=== PATIENT | female | born 1985 | race Caucasian/White ===

== ENCOUNTER 2020-05-22 14:16 | Outpatient (CLI) | payer OTHER, SELFPAY ==
--- NOTE | ~2020-05-22 | MM_ITS ---
EXAMINATION: MM screening rogerio BI w maureen HISTORY: Screening mammogram, family history of breast cancer in her mother at age 47. TECHNIQUE: Craniocaudal and mediolateral oblique 3-D tomosynthesis images were obtained and synthetic 2-D images were generated. CAD analysis was submitted and interpreted. COMPARISON: None, baseline BREAST PARENCHYMAL COMPOSITION: The breasts are extremely dense, which lowers the sensitivity of mamm ography. FINDINGS: There is no evidence of suspicious mass, calcification, or architectural distortion to sugg est malignancy in either breast. IMPRESSION: 1. No mammographic evidence of malignancy. 2. Recommend routine screening mammography in one year. BI-RADS Category 1: Negative Reviewed, dictated and finalized at location A.
== END 2020-05-22 14:17 | disposition home or self-care (01) ==
PROVIDERS: PCP Family Medicine; Visit Provider Family Medicine
DX: Z12.31 Encounter for screening mammogram for malignant neoplasm of breast (principal)
CPT/HCPCS: 77063; 77067

== ENCOUNTER → 2020-10-24 12:54 | Outpatient (CLI) | payer OTHER, SELFPAY ==
--- NOTE | ~2020-10-24 | XR_ITS ---
XR foot LT min 3V DATE: 10/24/2020 13:10 INDICATION: Left foot pain TECHNIQUE: 4 views COMPARISON: None FINDINGS: Posterior calcaneal enthesopathy. No fracture, dislocation, periosteal reaction or bone destruction is detected. Os tibiale externum, n ormal variant. IMPRESSION: Prominent posterior calcaneal enthesopathy Reviewed, dictated and finalized at location A. RUCTION DEAN
== END ==
PROVIDERS: PCP Physician Assistant Medical; Visit Provider Physician Assistant Medical
DX: M79.672 Pain in left foot (principal); M77.32 Calcaneal spur, left foot
CPT/HCPCS: 73630

== ENCOUNTER 2021-06-01 11:16 | Outpatient (CLI) | payer BC, SELFPAY ==
--- NOTE | ~2021-06-01 | MM_ITS ---
EXAMINATION: MM screening rogerio BI w maureen HISTORY: Screening mammogram TECHNIQUE: Craniocaudal and mediolateral oblique 3-D tomosynthesis images were obtained and synthetic 2-D images were generated. CAD analysis was submitted and interpreted. COMPARISON: 05/22/2020 bilateral digital screening mammogram BREAST PARENCHYMAL COMPOSITION: The breasts are extremely dense, which lowers the sensitivity of mamm ography. FINDINGS: There is no evidence of suspicious mass, calcification, or architectural distortion to sugg est malignancy in either breast. There has been no suspicious interval change. IMPRESSION: 1. No mammographic evidence of malignancy. 2. Recommend routine screening mammography in one year. BI-RADS Category 1: Negative Reviewed, dictated and finalized at location A.
== END 2021-06-01 11:17 | disposition home or self-care (01) ==
LOC: ANHIMG 11:17
PROVIDERS: PCP Family Medicine; Visit Provider Physician Assistant Medical
DX: Z12.31 Encounter for screening mammogram for malignant neoplasm of breast (principal); Z80.3 Family history of malignant neoplasm of breast
CPT/HCPCS: 77063; 77067

== ENCOUNTER 2022-07-23 08:18 | Outpatient (CLI) | payer OTHER, SELFPAY ==
--- NOTE | ~2022-07-23 | MM_ITS ---
EXAMINATION: MM screening rogerio BI w maureen HISTORY: Screening mammogram, family history of breast cancer in her mother. TECHNIQUE: Craniocaudal and mediolateral oblique 3-D tomosynthesis images were obtained and synthetic 2-D images were generated. CAD analysis was submitted and interpreted. COMPARISON: 06/01/2021, 05/22/2020 BREAST PARENCHYMAL COMPOSITION: The breasts are extremely dense, which lowers the sensitivity of mamm ography. FINDINGS: No suspicious mass, calcification, or architectural distortion are identified in either víctor ast to suggest malignancy. There has been no suspicious interval change. IMPRESSION: 1. No mammographic evidence of malignancy. 2. Recommend routine screening mammography in one year. BI-RADS Category 1: Negative Reviewed, dictated and finalized at location A.
== END 2022-07-23 08:19 | disposition home or self-care (01) ==
LOC: ANHIMG 08:21
PROVIDERS: PCP Family Medicine; Visit Provider Family Medicine
DX: Z12.31 Encounter for screening mammogram for malignant neoplasm of breast (principal)
CPT/HCPCS: 77063; 77067

== ENCOUNTER 2023-11-12 09:45 | Outpatient (CLI) | payer OTHER, SELFPAY ==
--- NOTE | ~2023-11-12 | MM_ITS ---
EXAMINATION: MM screening rogerio BI w maureen HISTORY: Screening mammogram, family history of breast cancer in her mother. TECHNIQUE: Craniocaudal and mediolateral oblique 3-D tomosynthesis images were obtained and synthetic 2-D images were generated. CAD analysis was submitted and interpreted. COMPARISON: 07/23/2022, 06/01/2021, 05/02/2020 BREAST PARENCHYMAL COMPOSITION: The breasts are heterogeneously dense, which may obscure small masses . FINDINGS: No suspicious mass, calcification, or architectural distortion are identified in either víctor ast to suggest malignancy. There has been no suspicious interval change. IMPRESSION: 1. No mammographic evidence of malignancy. 2. Recommend routine screening mammography in one year. BI-RADS Category 1: Negative Reviewed, dictated and finalized at location A. CE RUNNER
== END 2023-11-12 09:46 | disposition home or self-care (01) ==
PROVIDERS: PCP Family Medicine; Visit Provider Family Medicine
DX: Z12.31 Encounter for screening mammogram for malignant neoplasm of breast (principal)
CPT/HCPCS: 77063; 77067

== ENCOUNTER 2024-08-12 04:38 | Day surgery (SDC) | payer OTHER, SELFPAY ==
[2024-08-05 13:54] VITALS: BMI 27.9
--- NOTE | 2024-08-05 13:59 | PC.NURSE ---
Addendum entered by Luiz Olguin RN 08/05/24 14:05: Patient told OK to drive home. Original Note: Report to the Outpatient Waiting Room, entrance under the green pavilion located off [address], at time _1100_ on date _[id number]_. Planned Procedure Time: _1200_.? Time changes happen often and if your time is changed the preop area will call you the afternoon before. - You and your visitor will be asked to self-screen and do not enter if you have any COVID symptoms. Please call surgeon if you need to reschedule. - A mask is optional within the hospital at this time. Ok for light breakfast Take only the following medications with a SIP of water on the morning of surgery: __None____ DO NOT STOP ANY OF YOUR OTHER PRESCRIPTION MEDICATIONS PRIOR TO SURGERY EXCEPT THE FOLLOWING Medications to discontinue per physician ___None____ Please no make-up, nail occitan, hairspray, perfume, deodorant, or body powder the day of surgery.? No jewelry (including any body piercings) or valuables the day of surgery, leave them at home.? Please take a shower or bath the night before, or the morning of, surgery with an antibacterial soap.? Wear comfortable, loose fitting clothing.? - Jewelry must be removed prior to entering the operating room.? Rings and piercings that are not removed may be cut off. - The hospital will not accept responsibility for valuables.? - Please leave all valuables, including medications, at home the day of surgery. If you are going home after surgery, a licensed star route mail driver must drive you home.? - NO public transportation without another adult if you receive anesthesia. - We recommend that an adult stay with you for 24 hours following discharge. - We also recommend that you do not drive, make important decision, drink alcoholic beverages, or take any drugs that were not prescribed by your health care provider for at least 24 hours after your discharge time. Follow any additional instructions given to you from your surgeon. Telephone instructions given to __Gwen__and asked if any additional questions and then verbalized understanding. Patient advised to call surgeon office or pre surgery nurse liaison [phone] if any additional questions.
--- NOTE | 2024-08-12 11:08 | WPDHPUPDATE1 ---
History and Physical Update Update Date/Time: 08/12/24 11:08 History and Physical has been reviewed, including an updated exam of the patient. There are NO changes in the patient's condition. Risks, benefits, and alternatives have been discussed and questions answered. Patient agrees to proceed with procedure.
--- NOTE | 2024-08-12 11:08 | PM.IMHP ---
H&P: HPI History of Present Illness Date/Time: 08/12/24 11:08 Chief Complaint: scalp cyst Narrative: 39 yo woman presents for excision of 3cm scalp cyst. She reports no changes since last seen in office. Review of Systems Review of Systems: All systems reviewed & are unremarkable except as noted in HPI and below Constitutional: Constitutional: Denies chills, Denies fever(s), Denies headache(s) and Denies weight loss Eyes: Eyes: Denies change in vision ENT: Denies dizziness, Denies headache(s), Denies neck mass and Denies throat swelling Cardiovascular: Cardiovascular: Denies chest pain, Denies lightheadedness and Denies dyspnea Respiratory: Respiratory: Denies cough, Denies dyspnea and Denies wheezing Gastrointestinal: Gastrointestinal: Denies abdominal pain, Denies change in bowel habits, Denies nausea and Denies vomiting Genitourinary: Genitourinary: Denies hematuria and Denies dysuria Musculoskeletal: Musculoskeletal: Reports as per HPI Integumentary/Breasts: Skin/Breast: Reports as per HPI Neurologic: Denies dizziness and Denies headache(s) Allergic/Immunologic: Allergic/Immunologic: Denies throat swelling and Denies wheezing PMF Past Medical History Medical History Family history of breast cancer in mother Vaginal delivery Family History Family History Grandparent Diabetes mellitus Hypertension Family history of elevated blood lipids Family history of cardiovascular disease Father Malignant neoplasm of prostate Acute myocardial infarction Mother Family history of malignant neoplasm of uterus Family history of malignant neoplasm of breast in first degree relative Social History Social History Smoking status: Never smoker Second hand tobacco smoke exposure: No Alcohol intake: current Alcohol use details: Rarely Substance use: never Substance use type: does not use Lack of Transportation: No Lack of Food: Never True Current Housing: I Have Housing Concerned About Future Housing: No Difficulty Paying Gas/Electric Bills: No Difficulty Paying for Meds: No Currently Unemployed: No Education: Bachelor's Degree Difficulty w/ Childcare or Family Care: No Living arrangements: with family Occupation/Education: other Gender identity (if verbalized by the patient): Female Spiritual care concerns: No Agree to blood products: Yes Meds Home Medications and Allergies Home Medications Medication Instructions Recorded Confirmed Type No Home Medications 02/11/24 08/05/24 History Allergies Allergy/AdvReac Type Severity Reaction Status Date / Time Penicillins Allergy Unknown throat Verified 08/05/24 13:53 swelling Exam Const: General: no acute distress and alert Orientation/consciousness: patient oriented x3 HENMT: Head: normocephalic and atraumatic Ears: hearing grossly normal bilaterally Face/Nose/Sinus: Normal nares present Mouth: Yes Normal oral and palatal mucosa present Eyes: Periorbital: periorbital findings normal Sclera: sclerae normal EOM: EOMs intact bilaterally Neck: Neck: normal visual inspection, no lymphadenopathy and trachea midline Chest: Chest palpation & inspection: normal inspection of the chest Resp: Effort & Inspection: normal respiratory effort Auscultation: clear to auscultation bilaterally Cardio: Jugular venous distension: no JVD Rate: regular rate Rhythm: regular rhythm Heart sounds: S1 normal heart sound present and S2 normal heart sound present Peripheral pulses: Peripheral pulses 2+ throughout GI: Inspection: normal to inspection GI Palp: Yes Soft to palpation, No Tenderness to palpation present (GI), No Guarding due to palpation present (GI) and No Rebound tenderness present Percussion: Yes normal to percussion Auscultation: normal bowel sounds : General: Yes no CVA tenderness Back/Spine/Pelvis: Back: no CVA tenderness Skin: Other: 3cm scalp cyst Neuro: General: patient oriented x3, no focal motor deficits and CN's II-XI intact bilaterally Cognition (Neuro): normal cognition Speech: normal speech Motor exam (neuro): 5/5 motor strength present throughout Extrem: General: capillary refill normal and no clubbing, cyanosis or edema Assessment and Plan Assessment and plan (1) Scalp cyst: Code(s): L72.9 - Follicular cyst of the skin and subcutaneous tissue, unspecified Status: Acute Assessment and Plan: I have recommended excision of 3 cm scalp cyst. I have discussed the procedure, risks, benefits, and alternatives with the patient. All questions answered. No changes since last seen in office.
[2024-08-12 11:10] VITALS: BP 109/70; PULSE 78; RESP 18; TEMP 37.3; O2SAT 100
[2024-08-12 11:53] VITALS: BP 95/60; PULSE 74; RESP 12; O2SAT 98
[2024-08-12 12:02] VITALS: BP 96/63; PULSE 73; RESP 14; O2SAT 98
[2024-08-12 12:11] VITALS: BP 97/59; PULSE 80; RESP 14; O2SAT 98
[2024-08-12] MEDS: LIDO 1%/EPINEPHRINE 1:100,000 20 ML VIAL 50 ML INFILTRATE (12:11)
[2024-08-12 12:21] VITALS: BP 97/59; PULSE 82; RESP 16; O2SAT 98
--- NOTE | 2024-08-12 12:30 | W.PM.PROC2 ---
Procedure Note - Detailed Date of Procedure 08/12/24 Pre-op Diagnosis Scalp Cyst (3cm) Post-op Diagnosis Other (Scalp mass) Procedure Performed Excision of 3 cm scalp mass Surgeon Agustin Pop, DO Anesthesia Local (1% lidocaine with epinephrine) Indications This is a 39-year-old woman who presented with a scalp mass that was causing some discomfort. It had become larger over time. She denies any prior history of drainage. She was found to have a 3 cm scalp mass that appeared consistent with a cyst. Discussions were made with the patient about treatment options and decision was made to proceed with excision of the 3 cm scalp cyst. Findings The patient had a scalp mass that initially was thought to be a cyst. As I got down to this area this actually appeared to be a scalp lipoma. The subcutaneous mass was completely excised and sent to the lab for pathology. No other abnormalities were identified. Description of Procedure Procedure as well as risks, benefits, and alternatives were discussed with the patient. Written consent was obtained and placed in chart prior to procedure. Patient was brought back to surgical suite. She was placed in left lateral decubitus position on the operating table. Time-out was done to confirm patient and procedure. Her scalp area was prepped and draped in sterile fashion using Betadine prep. 1% lidocaine with epinephrine was infiltrated locally around the mass. A 3 cm incision was made directly over the mass using a 15 blade scalpel. Electrocautery was used for hemostasis. Careful dissection was carried out down to the mass using electrocautery and blunt dissection. The mass was identified appeared to be a lipoma. The mass was carefully dissected free from the subcutaneous attachments using blunt dissection and electrocautery. The mass was completely excised and sent to the lab for pathology. The wound bed was then inspected. Hemostasis appeared adequate and no other abnormalities were identified. The skin was then reapproximated using 3-0 Prolene simple interrupted sutures. A total of 5 sutures were placed to approximate the skin. Bacitracin ointment was then applied. The patient was then transferred to recovery. Estimated Blood Loss 20 Pathology Yes (3 cm scalp mass) Complications No immediate complications Condition Stable Disposition Same day [facility] Billing Surgery - Charge Forward: Surgery Billing
[2024-08-12 12:35] VITALS: BP 108/78; PULSE 71
== END 2024-08-12 12:55 | disposition home or self-care (01) ==
PROVIDERS: PCP Family Medicine; Visit Provider Surgery
PROC: (CPT 21012; principal; 2024-08-12 12:00)
DX: D17.0 Benign lipomatous neoplasm of skin and subcutaneous tissue of head, face and neck (principal)
CPT/HCPCS: 21012; 88304; A9270; J2004

== ENCOUNTER 2025-02-13 07:39 | Outpatient (CLI) | payer OTHER, SELFPAY ==
--- NOTE | ~2025-02-13 | MM_ITS ---
EXAMINATION: MM screening rogerio BI w maureen HISTORY: Screening TECHNIQUE: Craniocaudal and mediolateral oblique 3-D tomosynthesis images were obtained and synthetic 2-D images were generated. CAD analysis was submitted and interpreted. COMPARISON: Comparison to multiple prior studies sequentially, with oldest reviewed study dated 05/22. BREAST PARENCHYMAL COMPOSITION: Dense: The breasts are heterogeneously dense, which may obscure small masses FINDINGS: There is no evidence of suspicious mass, calcification, or architectural distortion to sugg est malignancy in either breast. There has been no suspicious interval change. IMPRESSION: 1. No mammographic evidence of malignancy. 2. Recommend routine screening mammography in one year. BI-RADS Category 1: Negative Reviewed, dictated and finalized at location B.
--- OUTSIDE RECORDS SUMMARY | 2025-02-13 07:44 | XMS_ITS | Clinical Summary ---
Author Organization [facility] Address [address] [place] [id number] Care Team Providers Care Hosiery Operator Name Role Phone Unavailable Primary Care Provider Unavailabl e Social History Tobacco Use Types Packs/Day Years Used Date Smoking Tobacco: Never Assessed Comments Unknown Sex and Gender Information Value Date Recorded Sex Assigned at Not on file Legal Sex Female 8:09 AM CDT Gender Identity Not on file Sexual Orientation Not on file Last Filed Vital Signs Vital Sign Reading Time Taken Comments Blood Pressure 112/68 10/09/2015 12:14 PM PHOTOGRAPH ENLARGER Pulse 74 10/09/2015 12:14 PM PHOTOGRAPH ENLARGER Temperature - - Respiratory Rate - - Oxygen Saturation - - Inhaled Oxygen Concentration - - Weight 84.8 kg (187 lb) 10/09/2015 12:14 PM PHOTOGRAPH ENLARGER Height 170.2 cm (5' 7 ) 10/09/2015 12:14 PM PHOTOGRAPH ENLARGER Body Mass Index 29.29 10/09/2015 12:14 PM PHOTOGRAPH ENLARGER Plan of Treatment Health Maintenance Due Date Last Done Comments Cervical Cancer Screening Pa p Smear (Age 30 to 64) Every 3 Years 1983 Annual Physical 1986 Hepatitis C 2001 DTaP, Tdap and Td Vaccines ( 1 - Tdap) 2002 Hepatitis B Vaccines (1 of 3 - 19+ 3-dose series) 2002 Cervical Cancer Screening Pa p with HPV Testing (Age 30 to 64) Every 5 Years 2013 Cervical Cancer Screening with HPV 2013 Mammogram Screening 2023 COVID-19 Vaccine (2023-2 5 season) 2024 HPV Vaccines Aged Out No longer eligi ble based on patient's age to complete this topic Meningococcal B Vaccine Aged Out No l onger eligible based on patient's age to complete this topic Meningococcal Vaccine Aged Out No olivia sher eligible based on patient's age to complete this topic Pneumococcal Vaccine: Pediat rics (0 to 5 Years) and At-Risk Patients (6 to 49 Years) Aged Out No longer eligible b ased on patient's age to complete this topic RSV Immunizations Under 20 Months Aged Out No longer eligible based on patient's age to complete this topic Advance Directives Documents on File Type Date Recorded Patient Mail Sorting Supervisor Expl anation Advance Directives and Living Will 02/16/2018 12:00 AM [employer]
== END 2025-02-13 07:40 | disposition home or self-care (01) ==
LOC: ANHIMG 07:42
PROVIDERS: PCP Family Medicine; Visit Provider Family Medicine
DX: Z12.31 Encounter for screening mammogram for malignant neoplasm of breast (principal)
CPT/HCPCS: 77063; 77067